=== PATIENT | female | born 1985 | race African-American/Black ===

== ENCOUNTER 2017-07-03 09:01 | Emergency (ER) | payer OTHER ==
[~2017-07-03] VITALS: Ht 160 cm; Wt 78.0 kg
[~2017-07-03 09:01] MED LIST: CLINDAMYCIN HC300 MG ORAL; IBUPROFEN600 MG ORAL; NORCO 5-325 TA1 EACH ORAL
[2017-07-03] MEDS ORDERED: NKM (09:11)
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
[2017-07-03] MEDS ORDERED: Acetaminophen 500mg (ES) tab ORAL ONE (09:30)
[2017-07-03] MEDS ORDERED: CYCLOBENZAPRINE10 MG ORAL (10:26)
[2017-07-03] MEDS ORDERED: IBUPROFEN600 MG ORAL (10:26)
[2017-07-03 10:38] VITALS: BP 116/83
--- NOTE | 2017-07-03 11:23 | Diagnostic Imaging Report ---
Indication: Pain Technique: 3 views left hand Comparison: none Findings: No acute fractures. No dislocations. The joint spaces are preserved Impression: Negative
--- NOTE | 2017-07-03 12:25 | Diagnostic Imaging Report ---
Indications: Pain Technique: Four views of the cervical spine Comparison: None Findings:Bony alignment is normal. No prevertebral soft tissue swelling. No acute fractures. No dislocations. Vertebral heights are preserved. The disc spaces are preserved. The neural foramina are preserved. Note that the odontoid is not optimally visualized. Impression: No acute bony trauma
== END 2017-07-03 10:40 | disposition home or self-care (01) ==
LOC: EMR 09:46
DX: S16.1XXA Strain of muscle, fascia and tendon at neck level, initial encounter (principal); S60.052A Contusion of left little finger without damage to nail, initial encounter; V43.53XA Car driver injured in collision with pick-up truck in traffic accident, initial encounter; Y92.410 Unspecified street and highway as the place of occurrence of the external cause
CPT/HCPCS: 72050; 81025; 99284